=== PATIENT | male | born 1965 | race Caucasian/White ===

== ENCOUNTER 2017-02-19 16:04 | Emergency (ER) | payer SELFPAY ==
[~2017-02-19] VITALS: Ht 170.2 cm; Wt 66.0 kg
[~2017-02-19 16:04] MED LIST: AMOX875 PO; BACT800T5 PO; CEPH250 PO; ERYTOIN10 OP; HYDR-3533 PO; LORTA5 PO; STOO100C PO; ULTR50TA PO; Z.0.NO CURRENT MEDS
[2017-02-19 16:05] VITALS: BP 153/77; PULSE 96; RESP 20; TEMP 97.8; O2SAT 97
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
[2017-02-19] MEDS ORDERED: KETOROLAC TROMETHAMINE 30 MG/ML (IVP) VIAL IV PUSH ONE (18:15)
[2017-02-19 18:27] VITALS: BP 131/84; PULSE 65; RESP 20; O2SAT 96
[2017-02-19 19:02] LABS: BASOPHIL # 0.1 TH/MM3 (0-0.2); BASOPHIL % 1.1 % (0.0-2.0); EOSINOPHIL # 0.4 TH/MM3 (0-0.4); EOSINOPHIL % 5.3 % (0.0-4.0); HEMATOCRIT 43.3 % (39.0-51.0); LYMPH % 29.7 % (9.0-44.0); LYMPHOCYTE # 2.1 TH/MM3 (1.0-4.8); MEAN CELL VOLUME 96.9 FL (80.0-100.0); MEAN CORPUSCULAR HEMOGLOBIN 32.7 PG (27.0-34.0); MEAN CORPUSCULAR HGB CONC 33.8 % (32.0-36.0); MONO % 8.4 % (0.0-8.0); NEUT % 55.5 % (16.0-70.0); PLATELET COUNT 74 TH/MM3 (150-450); RED BLOOD COUNT 4.47 MIL/MM3 (4.50-5.90); RED CELL DISTRIBUTION WIDTH 13.2 % (11.6-17.2); WHITE BLOOD COUNT 7.2 TH/MM3 (4.0-11.0)
[2017-02-19 19:16] LABS: HEMO FLAGS AUTO DIFF
[2017-02-19 19:32] LABS: POTASSIUM 3.7 MEQ/L (3.5-5.1)
[2017-02-19 19:46] LABS: SCAN/DIFF AUTO DIFF CONFIRMED
== END 2017-02-19 19:12 | disposition left against medical advice (07) ==
LOC: NEPE 16:04
DX: R68.84 Jaw pain (principal); F17.210 Nicotine dependence, cigarettes, uncomplicated
CPT/HCPCS: 80048; 85025; 96374; 99284; J1885